=== PATIENT | male | born 1990 | race Hispanic/Latino ===

== ENCOUNTER 2018-12-15 16:08 | Emergency (ER) | payer OTHER ==
[2018-12-15] MEDS ORDERED: DEXAMETHASONE SOD PHOSPHATE 10MG/ML 1ML VIAL ONE (16:24)
[2018-12-15] MEDS ORDERED: KETOROLAC TROMETHAMINE 60 MG/2 ML VIAL ONE (16:25)
== END 2018-12-15 17:04 | disposition home or self-care (01) ==
LOC: EDH 16:08
DX: G89.29 Other chronic pain (principal); M54.5 Low back pain
CPT/HCPCS: 96372 ×2; 99284; J1100; J1885